=== PATIENT | male | born 1975 | race Hispanic/Latino ===

== ENCOUNTER → 2018-03-01 | Outpatient (CLI) | payer OTHER | END | disposition home or self-care (01) | LOC: OIH 12:15 | PROVIDERS: ATTEND Nurse Practitioner Adult Health | DX: Z13.6 Encounter for screening for cardiovascular disorders (principal) | CPT/HCPCS: 75571 ==

== ENCOUNTER → 2019-12-01 | Outpatient (CLI) | payer BC ==
[~2019-12-01] MED LIST: AMLO5TAB9 PO; CALC0.253 PO; CARV12.511 PO; FOLI1TAB85 PO; SODI5POW2 PO; SODI650T PO
== END | disposition home or self-care (01) ==
LOC: SHCH 13:00
PROVIDERS: ATTEND Internal Medicine Cardiovascular Disease
DX: I51.7 Cardiomegaly (principal); R00.2 Palpitations
CPT/HCPCS: 93306; 93356

== ENCOUNTER 2019-12-07 14:02 | Inpatient (IN) | payer BC ==
[~2019-12-07] VITALS: Ht 182.9 cm; Wt 78.4 kg
[2019-12-07 15:38] LABS: BASOPHILS % (AUTO) 0.4 % (0.0-5.0); EOSINOPHILS % (AUTO) 3.6 % (0.0-8.0); HEMATOCRIT 28.8 % (42-54); LYMPHOCYTES % (AUTO) 18.4 % (21.0-51.0); MEAN CORPUSCULAR HEMOGLOBIN 30.8 pg (27.0-33.0); MEAN CORPUSCULAR HGB CONC 32.6 g/dL (32.0-36.0); MEAN CORPUSCULAR VOLUME 94.4 fL (79-99); MONOCYTES % (AUTO) 12.2 % (3.0-13.0); NEUTROPHILS % (AUTO) 65.2 % (40.0-77.0); PLATELET COUNT (AUTO) 185 K/uL (130-400); RED BLOOD CELL COUNT(AUTO) 3.05 MIL/uL (4.50-6.20); RED CELL DISTRIBUTION WIDTH 12.6 % (11.0-15.5); WHITE BLOOD COUNT (AUTO) 5.3 K/uL (4.8-10.8)
[2019-12-07 15:49] LABS: APPEARANCE,URINE Clear (CLEAR); BILIRUBIN,URINE Negative (NEGATIVE); COLOR,URINE Yellow (YELLOW); GLUCOSE, URINE (UA) Negative (NEGATIVE); KETONES,URINE Negative (NEGATIVE); LEUKOCYTE ESTERASE ,URINE Negative (NEGATIVE); NITRATE,URINE Negative (NEGATIVE); OCCULT BLOOD,URINE Moderate (NEGATIVE); PH,URINE 6.5 (5.0-8.0); PROTEIN,URINE 300 mg/dL (NEGATIVE); UROBILINOGEN,URINE 0.2 mg/dL (0.2-1.0)
[2019-12-07 15:57] LABS: AMPHET/METH SCREEN,URINE NEGATIVE (NEGATIVE); BARBITURATE SCREEN, URINE NEGATIVE (NEGATIVE); BENZODIAZEPINES SCREEN,URINE NEGATIVE (NEGATIVE); CANNABINOID SCREEN,URINE NEGATIVE (NEGATIVE); COCAINE SCREEN,URINE NEGATIVE (NEGATIVE); OPIATE SCREEN,URINE NEGATIVE (NEGATIVE); PHENCYCLIDINE SCREEN,URINE NEGATIVE (NEGATIVE)
[2019-12-07 15:57] LABS: ALBUMIN 3.6 g/dL (3.5-5.0); BILIRUBIN,TOTAL 0.2 mg/dL (0.2-1.0); POTASSIUM 5.5 mmol/L (3.5-5.1); TOTAL PROTEIN, SERUM 6.9 g/dL (6.0-8.3)
[2019-12-07 15:59] LABS: CREATININE 10.7 mg/dL (0.5-1.5)
[2019-12-07 16:28] LABS: BACTERIA,URINE Rare /HPF (None Seen); SQUAMOUS EPITHELIAL CELL,UR 0-2 /HPF (0-2); WBC,URINE 0-1 /HPF (0-1)
[2019-12-07] MEDS ORDERED: ACETAMINOPHEN 325 MG TAB ONE (17:55)
[2019-12-07] MEDS ORDERED: SODIUM POLYSTYRENE SULFONATE 15 GM/60 ML ML ONE (17:55)
[2019-12-07] MEDS ORDERED: SODIUM POLYSTYRENE SULFONATE 15 GM/60 ML ML PO ONE (19:30)
[2019-12-07] MEDS ORDERED: ONDANSETRON 4 MG TABLET PO PRN (19:45)
[2019-12-07] MEDS ORDERED: ACETAMINOPHEN 325 MG TAB PO PRN (19:45)
[2019-12-07 20:55] VITALS: BP 142/90
[2019-12-07 23:44] LABS: CREATINE KINASE, TOTAL 177 U/L (21-232); MYOGLOBIN 277 ng/mL (10-92); TROPONIN I < 0.04 ng/mL (0.00-0.06)
[2019-12-07 23:54] VITALS: BP 129/78
[2019-12-08] MEDS ORDERED: SODI5POW2 PO (00:33)
[2019-12-08] MEDS ORDERED: CALC0.253 PO (00:33)
[2019-12-08] MEDS ORDERED: AMLO5TAB9 PO (00:33)
[2019-12-08] MEDS ORDERED: FOLI1TAB85 PO (00:33)
[2019-12-08] MEDS ORDERED: SODI650T PO (00:33)
[2019-12-08] MEDS ORDERED: CARV12.511 PO (00:33)
[2019-12-08 04:00] VITALS: BP 138/86
[2019-12-08 06:50] LABS: BASOPHILS % (AUTO) 0.4 % (0.0-5.0); EOSINOPHILS % (AUTO) 3.2 % (0.0-8.0); HEMATOCRIT 27.5 % (42-54); LYMPHOCYTES % (AUTO) 12.5 % (21.0-51.0); MEAN CORPUSCULAR HEMOGLOBIN 31.2 pg (27.0-33.0); MEAN CORPUSCULAR HGB CONC 33.5 g/dL (32.0-36.0); MEAN CORPUSCULAR VOLUME 93.2 fL (79-99); MONOCYTES % (AUTO) 11.4 % (3.0-13.0); NEUTROPHILS % (AUTO) 72.1 % (40.0-77.0); PLATELET COUNT (AUTO) 175 K/uL (130-400); RED BLOOD CELL COUNT(AUTO) 2.95 MIL/uL (4.50-6.20); RED CELL DISTRIBUTION WIDTH 12.5 % (11.0-15.5); WHITE BLOOD COUNT (AUTO) 5.3 K/uL (4.8-10.8)
[2019-12-08 07:02] LABS: MAGNESIUM 1.7 mg/dL (1.80-2.40); PHOSPHORUS 7.6 mg/dL (2.5-4.9); POTASSIUM 4.2 mmol/L (3.5-5.1)
[2019-12-08 07:08] LABS: CREATINE KINASE, TOTAL 162 U/L (21-232); MYOGLOBIN 286 ng/mL (10-92); TROPONIN I < 0.04 ng/mL (0.00-0.06)
[2019-12-08 07:20] VITALS: BP 137/95
[2019-12-08 07:20] LABS: CREATININE 10.6 mg/dL (0.5-1.5)
[2019-12-08 10:39] VITALS: BP 139/91
--- NOTE | 2019-12-08 13:30 | NUR ---
CALLED DR. MCKINNEY TO REPORT CONSULT FOR ELEVATED BUN/CREAT. PER DR. MCKINNEY, WAS NOT AWARE OF THE CONSULT AND WILL NOT BE ABLE TO SEE THE PATIENT TODAY BUT WILL SEE THE PATIENT TOMORROW.
[2019-12-08 15:51] VITALS: BP 137/92
--- NOTE | 2019-12-08 17:40 | NUR ---
DCP CM spoke to pt discussed dc plans. Pt is independent prior to admission, lives at home with spouse. Denies any equipments/services. Feels safe to go back home, still drives and works, spouse able to assist with transportation and needs as necessary. Given daughter contact in case needed, Gwendolyn Jacob . DC plan to home once stable. CM to cont to follow up. Addendum: 12/08/19 at 1744 by ELLE HENRY LVN CM Amended: Links added.
[2019-12-08 20:06] VITALS: BP 143/90
[2019-12-09 01:06] VITALS: BP 138/74
[2019-12-09 04:35] VITALS: BP 141/87
[2019-12-09 07:30] VITALS: BP 132/88
[2019-12-09 10:54] VITALS: BP 136/84
[2019-12-09 13:33] LABS: HEMATOCRIT 28.4 % (42-54); MEAN CORPUSCULAR HEMOGLOBIN 30.9 pg (27.0-33.0); MEAN CORPUSCULAR HGB CONC 33.1 g/dL (32.0-36.0); MEAN CORPUSCULAR VOLUME 93.4 fL (79-99); RED BLOOD CELL COUNT(AUTO) 3.04 MIL/uL (4.50-6.20); RED CELL DISTRIBUTION WIDTH 12.4 % (11.0-15.5); WHITE BLOOD COUNT (AUTO) 5.1 K/uL (4.8-10.8)
[2019-12-09 13:52] LABS: CREATININE 10.6 mg/dL (0.5-1.5)
--- NOTE | 2019-12-09 14:30 | NUR ---
CALLED DR. MCKINNEY REGARDING CONSULT FOR ELEVATED BUN/CREATININE LEVELS. PER DR. MCKINNEY, ORDER RENAL US AND WILL SEE THE PATIENT LATER TODAY. PATIENT WAS MADE AWARE OF PROCEDURE AND VOICED UNDERSTANDING.
[2019-12-09 15:44] VITALS: BP 138/93
[2019-12-09] MEDS: SODIUM BICARBONATE 650 MG TAB PO SCH (20:32)
[2019-12-09] MEDS: CARVEDILOL 12.5 MG TABLET PO SCH (20:32)
[2019-12-09 21:34] VITALS: BP 145/97
[2019-12-10] VITALS (7 sets, daily range): BP systolic 129–147; BP diastolic 76–96
[2019-12-10] MEDS ORDERED: AMLODIPINE BESYLATE 5 MG TAB PO SCH (09:00)
[2019-12-10] MEDS ORDERED: FOLIC ACID/VITAMIN B COMP W-C 1 CAP TAB PO SCH (09:00)
[2019-12-10] MEDS ORDERED: CALCITRIOL 0.25 MCG CAPSULE PO SCH (09:00)
[2019-12-10] MEDS: SODIUM BICARBONATE 650 MG TAB PO SCH ×2 (09:21→21:25)
[2019-12-10] MEDS: CARVEDILOL 12.5 MG TABLET PO SCH ×2 (09:22→21:26)
--- NOTE | 2019-12-10 13:10 | NUR ---
CALLED DR. MCKINNEY REGARDING PATIENT WAITING TO BE SEEN TO FIND IF HE CAN GO HOME OR NEEDS TO CONTINUE TO STAY IN THE HOSPITAL. NO ANSWER AT THIS TIME.
--- NOTE | 2019-12-10 16:55 | NUR ---
Pt concerned that Dr. Fierro has not seen him yet. Notified Dr. Fierro that renal ultrasound has been completed, shows renal cyst, no hydronephrosis; also made him aware that pt has questions regarding the plan for him going forward. Dr. Fierro stated he would see pt tonight.
--- NOTE | 2019-12-10 22:04 | NUR ---
DC STATUS DCD HOME IN STABLE CONDITION PER V/S ,DENIES DISCOMFORT, PIV DCD ASEPTICALLY,CATH COMPLETELY OUT,GOOD HEMOSTASIS, ACCOMPANIED TO LOBBY BY PCP DWIGHT Addendum: 12/10/19 at 2206 by SHEREE VALLEJO RN RN Amended: Links added.
[2019-12-11] MEDS ORDERED: SODIUM ZIRCONIUM CYCLOSILICATE 5 GM POWD.PACK PO SCH (09:00)
== END 2019-12-10 22:04 | disposition home or self-care (01) | DRG 641 ==
LOC: EDH 14:02 → OBSVTOIN 17:55 → EDHIP 17:55 → 3DH 21:00
PROVIDERS: ADMIT Internal Medicine Infectious Disease; ATTEND Internal Medicine Infectious Disease
DX: E87.5 Hyperkalemia (principal); I12.0 Hypertensive chronic kidney disease with stage 5 chronic kidney disease or end stage renal disease; N17.9 Acute kidney failure, unspecified; N18.5 Chronic kidney disease, stage 5; D64.9 Anemia, unspecified; E86.0 Dehydration; E66.9 Obesity, unspecified; Z68.23 Body mass index [BMI] 23.0-23.9, adult; Z91.15 Patient's noncompliance with renal dialysis
CPT/HCPCS: 36415; 76770; 80048; 80053; 80305; 81001; 82550; 83735; 83874; 84100; 84484; 85025; 85027; 93005; G0378

== ENCOUNTER → 2021-04-23 | Outpatient (CLI) | payer BC, MEDICARE ==
[~2021-04-23] MED LIST changes: +AMLO-257 PO; -AMLO5TAB9 PO
== END | disposition home or self-care (01) ==
LOC: RAH 09:35
PROVIDERS: ATTEND Internal Medicine Critical Care Medicine
DX: K74.60 Unspecified cirrhosis of liver (principal)
CPT/HCPCS: 76700

== ENCOUNTER → 2021-05-29 | Outpatient (CLI) | payer BC, MEDICARE | END | disposition home or self-care (01) | LOC: OIH 15:27 | PROVIDERS: ATTEND Internal Medicine Critical Care Medicine | DX: J90 Pleural effusion, not elsewhere classified (principal); J18.8 Other pneumonia, unspecified organism | CPT/HCPCS: 71046 ==

== ENCOUNTER → 2021-08-27 | Outpatient (CLI) | payer BC, MEDICARE | END | disposition home or self-care (01) | LOC: LAB 15:31 | PROVIDERS: ATTEND Internal Medicine Critical Care Medicine | DX: J90 Pleural effusion, not elsewhere classified (principal) | CPT/HCPCS: 36415; 85651; 86038; 86140; 86215; 86235; 86431; 86480; 86606; 86612; 86635; 86698 ==